=== PATIENT | female | born 1955 | race Hispanic/Latino ===

== ENCOUNTER 2022-02-23 15:09 | Emergency (ER) | payer BC ==
[~2022-02-23] VITALS: Ht 162.6 cm; Wt 80.0 kg
[2022-02-23] MEDS ORDERED: CEPHALEXIN500 MG PO (16:09)
== END 2022-02-23 17:41 | disposition home or self-care (01) ==
LOC: FSED 16:28
DX: R05.9 Cough, unspecified (principal); J40 Bronchitis, not specified as acute or chronic; I10 Essential (primary) hypertension; E11.9 Type 2 diabetes mellitus without complications; E03.9 Hypothyroidism, unspecified
CPT/HCPCS: 81003; 99282